=== PATIENT | male | born 1970 | race Caucasian/White ===

== ENCOUNTER 2018-12-27 13:39 | Inpatient (IN) | payer BC, OTHER ==
[~2018-12-27] VITALS: Ht 177.8 cm; Wt 119.7 kg
[2018-12-27 13:50] VITALS: BP_SYST 141
[2018-12-27] MEDS ORDERED: NACL 0.9% 1,000 ML IV ONE (14:14)
[2018-12-27] MEDS ORDERED: MORPHINE 2 MG/ML INJ. SYRINGE IVP ONE (14:15)
[2018-12-27] MEDS ORDERED: IOHEXOL 100 ML IV ONE (15:39)
[2018-12-27 15:41] LABS: CALCIUM 8.9 mg/dL (8.4-11.0); CREATININE 0.93 mg/dL (0.55-1.30)
[2018-12-27 15:45] LABS: TOTAL BILIRUBIN 0.9 mg/dL (0.0-1.0)
[2018-12-27 15:51] LABS: BILIRUBIN,URINE 1+ (NEGATIVE); BLOOD, URINE NEGATIVE (NEGATIVE); CLARITY/URINE CLEAR (CLEAR); COLOR,URINE YELLOW (YELLOW); GLUCOSE,URINE 2+ (NEGATIVE); KETONES,URINE NEGATIVE (NEGATIVE); LEUKOCYTE ESTERASE ,URINE NEGATIVE (NEGATIVE); NITRITE, URINE NEGATIVE (NEGATIVE); PH,URINE 7.5 (5.0-8.0); PROTEIN URINE 2+ (NEGATIVE)
[2018-12-27 15:56] LABS: BACTERIA,URINE RARE /HPF (None Seen); RBC,URINE 0-3 /HPF (0-3); WBC,URINE 0-3 /HPF (0-3)
[2018-12-27 15:59] LABS: INR 0.9 (0.80-1.20); PROTHROMBIN TIME 9.3 SECS (9.5-12.5)
[2018-12-27 16:04] LABS: BASOPHILS # (AUTO) 0.1 K/uL (0.0-0.2); BASOPHILS % (AUTO) 0.6 % (0.0-2.0); EOSINOPHILS # (AUTO) 0.1 K/uL (0.0-0.4); EOSINOPHILS % (AUTO) 1.2 % (0.0-4.0); HEMATOCRIT 38.2 % (36-54); LYMPHOCYTES # (AUTO) 1.1 K/uL (1.0-5.5); LYMPHOCYTES % (AUTO) 11.5 % (20.5-51.5); MEAN CORPUSCULAR HEMOGLOBIN 30 pg (27-31); MEAN CORPUSCULAR HGB CONC 35 % (32-36); MEAN CORPUSCULAR VOLUME 85 fL (79.0-98.0); MONOCYTES # (AUTO) 0.6 K/uL (0.0-1.0); NEUTROPHILS % (AUTO) 80.7 % (40.0-70.0); PLATELET COUNT (AUTO) 204 K/uL (130-430); RED BLOOD CELL COUNT(AUTO) 4.47 MIL/uL (4.2-6.2); RED CELL DISTRIBUTION WIDTH 12.9 % (9.0-15.0); WHITE BLOOD COUNT (AUTO) 9.9 K/uL (4.8-10.8)
[2018-12-27 16:06] LABS: HEMOGLOBIN 13.2 g/dL (14.0-18.0)
[2018-12-27] MEDS ORDERED: KETOROLAC TROMETHAMINE 30 MG VIAL IVP ONE (17:00)
[2018-12-27] MEDS ORDERED: INSULIN REGULAR, HUMAN 10 UNITS/0.1 ML INJ IVP ONE (17:00)
[2018-12-27] MEDS ORDERED: METO1TAB10 PO (17:50)
[2018-12-27] MEDS ORDERED: SIMV40TA2 PO (17:50)
[2018-12-27] MEDS ORDERED: VALS160T2 PO (17:50)
[2018-12-27] MEDS ORDERED: OXYC10TA56 PO (17:50)
[2018-12-27] MEDS ORDERED: PREG75CA PO (17:50)
[2018-12-27] MEDS ORDERED: FENO160 PO (17:50)
[2018-12-27] MEDS ORDERED: TEST75GE TD (17:50)
[2018-12-27] MEDS ORDERED: AMLO5TAB4 PO (17:50)
[2018-12-27] MEDS ORDERED: HYDR12.55 (17:50)
[2018-12-27] MEDS ORDERED: SERT-131 PO (17:50)
[2018-12-27] MEDS ORDERED: NACL 0.9% 1,000 ML IV SCH (18:00)
[2018-12-27 18:37] VITALS: BP_SYST 128
[2018-12-27 20:00] VITALS: BP_SYST 136
[2018-12-27] MEDS ORDERED: traZODone HCL 50 MG TABLET (DESYREL) PO PRN (22:30)
[2018-12-27] MEDS ORDERED: ONDANSETRON HCL 4 MG/2 ML VIAL IVP PRN (22:30)
[2018-12-27] MEDS ORDERED: ONDANSETRON HCL 4 MG/2 ML VIAL IM PRN (22:30)
[2018-12-27] MEDS ORDERED: MORPHINE 2 MG/ML INJ. SYRINGE IVP PRN (22:30)
[2018-12-27] MEDS: MORPHINE 4 MG/ML INJ. SYRINGE IVP PRN (22:46)
[2018-12-27] MEDS: NACL 0.9% 1,000 ML IV SCH (22:49)
[2018-12-27] MEDS ORDERED: D5W 1,000 ML IV PRN (23:00)
[2018-12-27] MEDS ORDERED: GLUCOSE 15 GM GEL (in 37.5 GM TUBE) PO PRN (23:00)
[2018-12-27] MEDS ORDERED: DEXTROSE 50%-WATER 50 ML DISP.SYRIN IVP PRN (23:00)
[2018-12-27] MEDS: INSULIN REGULAR, HUMAN 100 UNITS/ML, 10 ML VIAL (humuLIN R) SUBCUT PRN (23:06)
[2018-12-28 00:46] VITALS: BP_SYST 99
[2018-12-28] MEDS: INSULIN REGULAR, HUMAN 100 UNITS/ML, 10 ML VIAL (humuLIN R) SUBCUT PRN ×4 (05:22→20:21)
[2018-12-28] MEDS: NACL 0.9% 1,000 ML IV SCH ×2 (05:23→15:00)
[2018-12-28] MEDS: LORazepam 2 MG/ML VIAL IVP PRN (05:39)
[2018-12-28] MEDS: MORPHINE 4 MG/ML INJ. SYRINGE IVP PRN ×3 (05:39→20:14)
[2018-12-28 07:01] LABS: BASOPHILS # (AUTO) 0.1 K/uL (0.0-0.2); BASOPHILS % (AUTO) 0.7 % (0.0-2.0); EOSINOPHILS # (AUTO) 0.1 K/uL (0.0-0.4); EOSINOPHILS % (AUTO) 1.1 % (0.0-4.0); HEMATOCRIT 34.5 % (36-54); HEMOGLOBIN 12.2 g/dL (14.0-18.0); LYMPHOCYTES # (AUTO) 1.1 K/uL (1.0-5.5); LYMPHOCYTES % (AUTO) 12.9 % (20.5-51.5); MEAN CORPUSCULAR HEMOGLOBIN 30 pg (27-31); MEAN CORPUSCULAR HGB CONC 35 % (32-36); MEAN CORPUSCULAR VOLUME 84 fL (79.0-98.0); MONOCYTES # (AUTO) 0.7 K/uL (0.0-1.0); MONOCYTES % (AUTO) 8.3 % (1.7-9.3); NEUTROPHILS # (AUTO) 6.7 K/uL (1.8-7.7); PLATELET COUNT (AUTO) 133 K/uL (130-430); RED BLOOD CELL COUNT(AUTO) 4.09 MIL/uL (4.2-6.2); RED CELL DISTRIBUTION WIDTH 13.2 % (9.0-15.0); WHITE BLOOD COUNT (AUTO) 8.7 K/uL (4.8-10.8)
[2018-12-28 07:15] LABS: ALBUMIN 3.3 g/dL (3.4-4.8); CALCIUM 8.3 mg/dL (8.4-11.0); CREATININE 0.93 mg/dL (0.55-1.30); POTASSIUM 3.4 mmol/L (3.5-5.1); TOTAL BILIRUBIN 0.8 mg/dL (0.0-1.0)
[2018-12-28 08:00] VITALS: BP_SYST 121
[2018-12-28 11:31] VITALS: BP_SYST 115
[2018-12-28 14:30] VITALS: BP_SYST 134
[2018-12-28] MEDS ORDERED: DIPHENHYDRAMINE INJ 50 MG/ML VIAL IVP PRN (14:30)
[2018-12-28 16:30] VITALS: BP_SYST 122
[2018-12-28 20:00] VITALS: BP_SYST 120
[2018-12-28] MEDS: PREGABALIN 75 MG CAPSULE (LYRICA) PO SCH (20:04)
[2018-12-28] MEDS: oxyCODONE HCL 10 MG TAB.ER.12H PO SCH (20:04)
[2018-12-28] MEDS: ACETAMINOPHEN 325 MG TABLET PO PRN (20:13)
[2018-12-29] MEDS: MORPHINE 4 MG/ML INJ. SYRINGE IVP PRN ×6 (00:23→21:59)
[2018-12-29 00:54] VITALS: BP_SYST 133
[2018-12-29] MEDS: NACL 0.9% 1,000 ML IV SCH ×3 (02:49→21:58)
[2018-12-29] MEDS: INSULIN REGULAR, HUMAN 100 UNITS/ML, 10 ML VIAL (humuLIN R) SUBCUT PRN ×4 (05:40→20:49)
[2018-12-29 07:08] LABS: BASOPHILS % (AUTO) 0.5 % (0.0-2.0); EOSINOPHILS # (AUTO) 0.1 K/uL (0.0-0.4); EOSINOPHILS % (AUTO) 1.5 % (0.0-4.0); HEMATOCRIT 33.4 % (36-54); HEMOGLOBIN 11.5 g/dL (14.0-18.0); LYMPHOCYTES # (AUTO) 0.8 K/uL (1.0-5.5); LYMPHOCYTES % (AUTO) 11.9 % (20.5-51.5); MEAN CORPUSCULAR HEMOGLOBIN 29 pg (27-31); MEAN CORPUSCULAR HGB CONC 35 % (32-36); MEAN CORPUSCULAR VOLUME 84 fL (79.0-98.0); MONOCYTES # (AUTO) 0.6 K/uL (0.0-1.0); MONOCYTES % (AUTO) 9.2 % (1.7-9.3); NEUTROPHILS # (AUTO) 5.1 K/uL (1.8-7.7); NEUTROPHILS % (AUTO) 76.9 % (40.0-70.0); PLATELET COUNT (AUTO) 110 K/uL (130-430); RED BLOOD CELL COUNT(AUTO) 3.96 MIL/uL (4.2-6.2); RED CELL DISTRIBUTION WIDTH 12.8 % (9.0-15.0); WHITE BLOOD COUNT (AUTO) 6.7 K/uL (4.8-10.8)
[2018-12-29 07:18] LABS: CALCIUM 8.5 mg/dL (8.4-11.0); POTASSIUM 3.9 mmol/L (3.5-5.1)
[2018-12-29 08:08] VITALS: BP_SYST 134
[2018-12-29] MEDS: amLODIPine BESYLATE 5 MG TABLET PO SCH (08:44)
[2018-12-29] MEDS: SIMVASTATIN 40 MG TABLET PO SCH (08:45)
[2018-12-29] MEDS: METOPROLOL SUCCINATE 50 MG TAB.SR.24H (TOPROL XL) PO SCH (08:45)
[2018-12-29] MEDS: PREGABALIN 75 MG CAPSULE (LYRICA) PO SCH ×2 (08:45→20:20)
[2018-12-29] MEDS: SERTRALINE HCL 50 MG TABLET PO SCH (08:45)
[2018-12-29] MEDS: FENOFIBRATE 160 MG TABLET PO SCH (08:46)
[2018-12-29] MEDS: VALSARTAN 160 MG TABLET (DIOVAN) PO SCH (08:47)
[2018-12-29] MEDS: HYDROCHLOROTHIAZIDE 12.5 MG CAPSULE (HCTZ) PO SCH (08:47)
[2018-12-29] MEDS: oxyCODONE HCL 10 MG TAB.ER.12H PO SCH ×2 (08:48→20:20)
[2018-12-29] MEDS ORDERED: HYDROCHLOROTHIAZIDE 25 MG TABLET (HCTZ) PO SCH (09:00)
[2018-12-29] MEDS ORDERED: TESTOSTERONE 75 GM TD SCH (09:00)
[2018-12-29] MEDS ORDERED: HYDROCHLOROTHIAZIDE 10 MG SCH (09:00)
[2018-12-29 11:31] VITALS: BP_SYST 144
[2018-12-29 12:01] VITALS: BP_SYST 132
[2018-12-29 15:27] VITALS: BP_SYST 135
[2018-12-29] MEDS: ACETAMINOPHEN 325 MG TABLET PO PRN (17:30)
[2018-12-29 20:00] VITALS: BP_SYST 136
[2018-12-29] MEDS ORDERED: INSULIN GLARGINE 100 UNITS/ML 10 ML VIAL SUBCUT SCH (21:45)
[2018-12-30 01:26] VITALS: BP_SYST 134
[2018-12-30] MEDS: MORPHINE 4 MG/ML INJ. SYRINGE IVP PRN ×4 (02:09→15:10)
[2018-12-30] MEDS: INSULIN REGULAR, HUMAN 100 UNITS/ML, 10 ML VIAL (humuLIN R) SUBCUT PRN (06:31)
[2018-12-30 06:53] LABS: BASOPHILS % (AUTO) 0.5 % (0.0-2.0); EOSINOPHILS # (AUTO) 0.1 K/uL (0.0-0.4); EOSINOPHILS % (AUTO) 2.4 % (0.0-4.0); HEMATOCRIT 33.8 % (36-54); HEMOGLOBIN 11.7 g/dL (14.0-18.0); LYMPHOCYTES # (AUTO) 0.9 K/uL (1.0-5.5); LYMPHOCYTES % (AUTO) 15.9 % (20.5-51.5); MEAN CORPUSCULAR HEMOGLOBIN 29 pg (27-31); MEAN CORPUSCULAR HGB CONC 35 % (32-36); MEAN CORPUSCULAR VOLUME 84 fL (79.0-98.0); MONOCYTES # (AUTO) 0.5 K/uL (0.0-1.0); MONOCYTES % (AUTO) 8.9 % (1.7-9.3); NEUTROPHILS # (AUTO) 4.1 K/uL (1.8-7.7); NEUTROPHILS % (AUTO) 72.3 % (40.0-70.0); PLATELET COUNT (AUTO) 121 K/uL (130-430); RED BLOOD CELL COUNT(AUTO) 4.04 MIL/uL (4.2-6.2); RED CELL DISTRIBUTION WIDTH 12.6 % (9.0-15.0); WHITE BLOOD COUNT (AUTO) 5.7 K/uL (4.8-10.8)
[2018-12-30 07:21] LABS: CREATININE 0.67 mg/dL (0.55-1.30); POTASSIUM 3.3 mmol/L (3.5-5.1); THYROID STIMULATING HORMONE 1.61 uIu/mL (0.34-4.82); TOTAL BILIRUBIN 1.1 mg/dL (0.0-1.0)
[2018-12-30 08:31] VITALS: BP_SYST 128
[2018-12-30] MEDS: amLODIPine BESYLATE 5 MG TABLET PO SCH (08:37)
[2018-12-30] MEDS: HYDROCHLOROTHIAZIDE 12.5 MG CAPSULE (HCTZ) PO SCH (08:37)
[2018-12-30] MEDS: FENOFIBRATE 160 MG TABLET PO SCH (08:37)
[2018-12-30] MEDS: VALSARTAN 160 MG TABLET (DIOVAN) PO SCH (08:37)
[2018-12-30] MEDS: PREGABALIN 75 MG CAPSULE (LYRICA) PO SCH ×2 (08:37→20:33)
[2018-12-30] MEDS: oxyCODONE HCL 10 MG TAB.ER.12H PO SCH ×2 (08:38→20:34)
[2018-12-30] MEDS: SERTRALINE HCL 50 MG TABLET PO SCH (08:38)
[2018-12-30] MEDS: METOPROLOL SUCCINATE 50 MG TAB.SR.24H (TOPROL XL) PO SCH (08:38)
[2018-12-30] MEDS: SIMVASTATIN 40 MG TABLET PO SCH (08:38)
[2018-12-30] MEDS: NACL 0.9% 1,000 ML IV SCH (08:42)
[2018-12-30 10:32] VITALS: BP_SYST 128
[2018-12-30] MEDS: KCL 20 mEq in 0.45% NS 1000 mL 1,000 ML IV SCH ×2 (11:04→23:04)
[2018-12-30 12:53] VITALS: BP_SYST 129
[2018-12-30 16:52] VITALS: BP_SYST 148
[2018-12-30 20:40] VITALS: BP_SYST 135
[2018-12-30] MEDS: INSULIN GLARGINE 100 UNITS/ML 10 ML VIAL SUBCUT SCH (21:00)
[2018-12-30] MEDS: HYDROmorphone 1 MG INJ. 1 MG/ML AMPUL IVP PRN (21:16)
[2018-12-31 00:21] VITALS: BP_SYST 142
[2018-12-31] MEDS: HYDROmorphone 1 MG INJ. 1 MG/ML AMPUL IVP PRN ×5 (01:06→19:41)
[2018-12-31 06:23] LABS: BASOPHILS % (AUTO) 0.5 % (0.0-2.0); EOSINOPHILS # (AUTO) 0.2 K/uL (0.0-0.4); EOSINOPHILS % (AUTO) 2.7 % (0.0-4.0); HEMATOCRIT 34.3 % (36-54); HEMOGLOBIN 11.6 g/dL (14.0-18.0); LYMPHOCYTES % (AUTO) 16.1 % (20.5-51.5); MEAN CORPUSCULAR HEMOGLOBIN 29 pg (27-31); MEAN CORPUSCULAR HGB CONC 34 % (32-36); MEAN CORPUSCULAR VOLUME 85 fL (79.0-98.0); MONOCYTES # (AUTO) 0.7 K/uL (0.0-1.0); MONOCYTES % (AUTO) 11.6 % (1.7-9.3); NEUTROPHILS # (AUTO) 4.4 K/uL (1.8-7.7); NEUTROPHILS % (AUTO) 69.1 % (40.0-70.0); PLATELET COUNT (AUTO) 144 K/uL (130-430); RED BLOOD CELL COUNT(AUTO) 4.05 MIL/uL (4.2-6.2); RED CELL DISTRIBUTION WIDTH 12.8 % (9.0-15.0); WHITE BLOOD COUNT (AUTO) 6.3 K/uL (4.8-10.8)
[2018-12-31 06:33] LABS: CREATININE 0.82 mg/dL (0.55-1.30); POTASSIUM 3.6 mmol/L (3.5-5.1)
[2018-12-31] MEDS ORDERED: MIDAZOLAM HCL 5 MG/5 ML VIAL ONE (07:06)
[2018-12-31] MEDS ORDERED: BENZOCAINE 20% 0.5mL UD SPRAY MM ONE (07:07)
[2018-12-31] MEDS: fentaNYL CITRATE/PF 100 MCG/2 ML AMP ONE ×3 (07:49→07:55)
[2018-12-31] MEDS: MIDAZOLAM HCL 5 MG/5 ML VIAL ONE ×4 (07:49→07:58)
[2018-12-31] MEDS: KCL 20 mEq in 0.45% NS 1000 mL 1,000 ML IV SCH ×2 (08:51→12:03)
[2018-12-31 09:00] VITALS: BP_SYST 145
[2018-12-31] MEDS: PANTOPRAZOLE SODIUM 40 MG/VIAL (PROTONIX) IVP SCH ×2 (09:10→20:51)
[2018-12-31] MEDS: SIMVASTATIN 40 MG TABLET PO SCH (09:11)
[2018-12-31] MEDS: SERTRALINE HCL 50 MG TABLET PO SCH (09:11)
[2018-12-31] MEDS: METOPROLOL SUCCINATE 50 MG TAB.SR.24H (TOPROL XL) PO SCH (09:11)
[2018-12-31] MEDS: PREGABALIN 75 MG CAPSULE (LYRICA) PO SCH ×2 (09:11→20:52)
[2018-12-31] MEDS: amLODIPine BESYLATE 5 MG TABLET PO SCH (09:12)
[2018-12-31] MEDS: FENOFIBRATE 160 MG TABLET PO SCH (09:12)
[2018-12-31] MEDS: oxyCODONE HCL 10 MG TAB.ER.12H PO SCH ×2 (09:12→20:52)
[2018-12-31] MEDS: HYDROCHLOROTHIAZIDE 12.5 MG CAPSULE (HCTZ) PO SCH (09:12)
[2018-12-31] MEDS: VALSARTAN 160 MG TABLET (DIOVAN) PO SCH (09:13)
[2018-12-31] MEDS: INSULIN REGULAR, HUMAN 100 UNITS/ML, 10 ML VIAL (humuLIN R) SUBCUT PRN ×2 (12:03→17:32)
[2018-12-31 12:24] VITALS: BP_SYST 148
[2018-12-31 16:08] VITALS: BP_SYST 130
[2018-12-31 19:38] VITALS: BP_SYST 123
[2018-12-31] MEDS: INSULIN GLARGINE 100 UNITS/ML 10 ML VIAL SUBCUT SCH (21:04)
[2018-12-31] MEDS: LR 1,000 ML IV SCH (21:08)
[2019-01-01] MEDS: INSULIN REGULAR, HUMAN 100 UNITS/ML, 10 ML VIAL (humuLIN R) SUBCUT PRN ×3 (00:24→12:09)
[2019-01-01 00:25] VITALS: BP_SYST 119
[2019-01-01] MEDS: LR 1,000 ML IV SCH ×5 (02:10→22:38)
[2019-01-01] MEDS: HYDROmorphone 1 MG INJ. 1 MG/ML AMPUL IVP PRN ×4 (05:42→22:38)
[2019-01-01 05:44] LABS: BASOPHILS % (AUTO) 0.4 % (0.0-2.0); EOSINOPHILS # (AUTO) 0.2 K/uL (0.0-0.4); EOSINOPHILS % (AUTO) 2.4 % (0.0-4.0); HEMATOCRIT 32.1 % (36-54); HEMOGLOBIN 11.1 g/dL (14.0-18.0); LYMPHOCYTES # (AUTO) 0.9 K/uL (1.0-5.5); LYMPHOCYTES % (AUTO) 12.5 % (20.5-51.5); MEAN CORPUSCULAR HEMOGLOBIN 29 pg (27-31); MEAN CORPUSCULAR HGB CONC 35 % (32-36); MEAN CORPUSCULAR VOLUME 83 fL (79.0-98.0); MONOCYTES # (AUTO) 0.8 K/uL (0.0-1.0); MONOCYTES % (AUTO) 10.9 % (1.7-9.3); NEUTROPHILS # (AUTO) 5.3 K/uL (1.8-7.7); NEUTROPHILS % (AUTO) 73.8 % (40.0-70.0); PLATELET COUNT (AUTO) 156 K/uL (130-430); RED BLOOD CELL COUNT(AUTO) 3.85 MIL/uL (4.2-6.2); WHITE BLOOD COUNT (AUTO) 7.2 K/uL (4.8-10.8)
[2019-01-01 06:55] LABS: ALBUMIN 2.9 g/dL (3.4-4.8); CALCIUM 9.1 mg/dL (8.4-11.0); CREATININE 0.86 mg/dL (0.55-1.30); POTASSIUM 3.1 mmol/L (3.5-5.1); TOTAL BILIRUBIN 0.6 mg/dL (0.0-1.0)
[2019-01-01 08:00] VITALS: BP_SYST 155
[2019-01-01] MEDS ORDERED: POTASSIUM CHLORIDE 20 MEQ TAB.PRT.SR PO ONE (08:45)
[2019-01-01] MEDS: SERTRALINE HCL 50 MG TABLET PO SCH (09:21)
[2019-01-01] MEDS: PANTOPRAZOLE SODIUM 40 MG/VIAL (PROTONIX) IVP SCH ×2 (09:21→20:04)
[2019-01-01] MEDS: oxyCODONE HCL 10 MG TAB.ER.12H PO SCH ×2 (09:21→20:04)
[2019-01-01] MEDS: METOPROLOL SUCCINATE 50 MG TAB.SR.24H (TOPROL XL) PO SCH (09:22)
[2019-01-01] MEDS: amLODIPine BESYLATE 5 MG TABLET PO SCH (09:22)
[2019-01-01] MEDS: VALSARTAN 160 MG TABLET (DIOVAN) PO SCH (09:23)
[2019-01-01] MEDS: PREGABALIN 75 MG CAPSULE (LYRICA) PO SCH ×2 (09:23→20:04)
[2019-01-01] MEDS: SIMVASTATIN 40 MG TABLET PO SCH (09:23)
[2019-01-01] MEDS: HYDROCHLOROTHIAZIDE 12.5 MG CAPSULE (HCTZ) PO SCH (09:23)
[2019-01-01 11:37] VITALS: BP_SYST 143
[2019-01-01] MEDS ORDERED: DEXTROSE 50% JECT 50 ML DISP.SYRIN IVP PRN (12:30)
[2019-01-01] MEDS ORDERED: INSULIN NPH 100 UNITS/ML 10 ML VIAL SUBCUT ONE (12:30)
[2019-01-01] MEDS ORDERED: FENOFIBRATE 160 MG TABLET PO ONE (13:00)
[2019-01-01] MEDS ORDERED: INSULIN Lispro 100 UNITS/ML VIAL (humaLOG) SUBCUT ONE (13:00)
[2019-01-01 15:54] VITALS: BP_SYST 138
[2019-01-01] MEDS: INSULIN Lispro 100 UNITS/ML VIAL (humaLOG) SUBCUT SCH (17:14)
[2019-01-01] MEDS: INSULIN LISPRO SLIDING SCALE 100 UNITS/ML VIAL (humaLOG) SUBCUT PRN ×2 (17:16→20:12)
[2019-01-01 20:00] VITALS: BP_SYST 151
[2019-01-01] MEDS ORDERED: INSULIN GLARGINE 100 UNITS/ML 10 ML VIAL SUBCUT SCH (21:00)
[2019-01-01 23:57] VITALS: BP_SYST 134
[2019-01-02] MEDS: LR 1,000 ML IV SCH ×4 (03:07→20:04)
[2019-01-02] MEDS: HYDROmorphone 1 MG INJ. 1 MG/ML AMPUL IVP PRN ×4 (04:07→19:57)
[2019-01-02 06:24] LABS: BASOPHILS % (AUTO) 0.5 % (0.0-2.0); EOSINOPHILS # (AUTO) 0.2 K/uL (0.0-0.4); EOSINOPHILS % (AUTO) 2.6 % (0.0-4.0); HEMOGLOBIN 11.1 g/dL (14.0-18.0); LYMPHOCYTES # (AUTO) 0.9 K/uL (1.0-5.5); LYMPHOCYTES % (AUTO) 14.7 % (20.5-51.5); MEAN CORPUSCULAR HEMOGLOBIN 29 pg (27-31); MEAN CORPUSCULAR HGB CONC 35 % (32-36); MEAN CORPUSCULAR VOLUME 84 fL (79.0-98.0); MONOCYTES # (AUTO) 0.6 K/uL (0.0-1.0); MONOCYTES % (AUTO) 10.1 % (1.7-9.3); NEUTROPHILS # (AUTO) 4.2 K/uL (1.8-7.7); NEUTROPHILS % (AUTO) 72.1 % (40.0-70.0); PLATELET COUNT (AUTO) 160 K/uL (130-430); RED BLOOD CELL COUNT(AUTO) 3.83 MIL/uL (4.2-6.2); RED CELL DISTRIBUTION WIDTH 12.8 % (9.0-15.0); WHITE BLOOD COUNT (AUTO) 5.9 K/uL (4.8-10.8)
[2019-01-02] MEDS: INSULIN Lispro 100 UNITS/ML VIAL (humaLOG) SUBCUT SCH ×3 (06:32→17:26)
[2019-01-02] MEDS: INSULIN LISPRO SLIDING SCALE 100 UNITS/ML VIAL (humaLOG) SUBCUT PRN ×4 (06:33→21:26)
[2019-01-02] MEDS: LORazepam 2 MG/ML VIAL IVP PRN ×3 (06:39→21:52)
[2019-01-02 06:59] LABS: CALCIUM 9.3 mg/dL (8.4-11.0); CREATININE 0.9 mg/dL (0.55-1.30); POTASSIUM 3.6 mmol/L (3.5-5.1)
[2019-01-02 08:00] VITALS: BP_SYST 156
[2019-01-02] MEDS: oxyCODONE HCL 10 MG TAB.ER.12H PO SCH ×2 (08:02→21:17)
[2019-01-02] MEDS: PANTOPRAZOLE SODIUM 40 MG/VIAL (PROTONIX) IVP SCH ×2 (08:02→21:17)
[2019-01-02] MEDS: PREGABALIN 75 MG CAPSULE (LYRICA) PO SCH ×2 (08:02→21:17)
[2019-01-02] MEDS: SERTRALINE HCL 50 MG TABLET PO SCH (08:02)
[2019-01-02] MEDS: VALSARTAN 160 MG TABLET (DIOVAN) PO SCH (08:03)
[2019-01-02] MEDS: FENOFIBRATE 160 MG TABLET PO SCH (08:03)
[2019-01-02] MEDS: HYDROCHLOROTHIAZIDE 12.5 MG CAPSULE (HCTZ) PO SCH (08:03)
[2019-01-02] MEDS: SIMVASTATIN 40 MG TABLET PO SCH (08:03)
[2019-01-02] MEDS: amLODIPine BESYLATE 5 MG TABLET PO SCH (08:04)
[2019-01-02] MEDS: METOPROLOL SUCCINATE 50 MG TAB.SR.24H (TOPROL XL) PO SCH (08:04)
[2019-01-02] MEDS ORDERED: DIATR MEGLU/DIATRIZ SOD 30 ML SOLUTION PO ONE (10:16)
[2019-01-02] MEDS ORDERED: IOHEXOL 100 ML IV ONE (11:49)
[2019-01-02 12:00] VITALS: BP_SYST 153
[2019-01-02 16:00] VITALS: BP_SYST 129
[2019-01-02 19:53] VITALS: BP_SYST 154
[2019-01-02] MEDS: INSULIN GLARGINE 100 UNITS/ML 10 ML VIAL SUBCUT SCH (21:23)
[2019-01-03] MEDS: LR 1,000 ML IV SCH ×5 (00:07→20:22)
[2019-01-03] MEDS: HYDROmorphone 1 MG INJ. 1 MG/ML AMPUL IVP PRN ×5 (00:08→20:23)
[2019-01-03 00:43] VITALS: BP_SYST 136
[2019-01-03 07:00] LABS: BASOPHILS % (AUTO) 0.4 % (0.0-2.0); EOSINOPHILS # (AUTO) 0.1 K/uL (0.0-0.4); EOSINOPHILS % (AUTO) 2.6 % (0.0-4.0); HEMOGLOBIN 10.7 g/dL (14.0-18.0); LYMPHOCYTES # (AUTO) 0.8 K/uL (1.0-5.5); LYMPHOCYTES % (AUTO) 15.2 % (20.5-51.5); MEAN CORPUSCULAR HEMOGLOBIN 29 pg (27-31); MEAN CORPUSCULAR HGB CONC 34 % (32-36); MEAN CORPUSCULAR VOLUME 83 fL (79.0-98.0); MONOCYTES # (AUTO) 0.6 K/uL (0.0-1.0); MONOCYTES % (AUTO) 10.8 % (1.7-9.3); NEUTROPHILS # (AUTO) 3.8 K/uL (1.8-7.7); PLATELET COUNT (AUTO) 175 K/uL (130-430); RED BLOOD CELL COUNT(AUTO) 3.74 MIL/uL (4.2-6.2); RED CELL DISTRIBUTION WIDTH 12.9 % (9.0-15.0); WHITE BLOOD COUNT (AUTO) 5.4 K/uL (4.8-10.8)
[2019-01-03 07:14] LABS: ALBUMIN 2.8 g/dL (3.4-4.8); CALCIUM 9.1 mg/dL (8.4-11.0); CREATININE 0.75 mg/dL (0.55-1.30); POTASSIUM 3.5 mmol/L (3.5-5.1); TOTAL BILIRUBIN 0.5 mg/dL (0.0-1.0)
[2019-01-03] MEDS: INSULIN Lispro 100 UNITS/ML VIAL (humaLOG) SUBCUT SCH ×2 (07:21→12:02)
[2019-01-03] MEDS: INSULIN LISPRO SLIDING SCALE 100 UNITS/ML VIAL (humaLOG) SUBCUT PRN ×3 (07:22→17:36)
[2019-01-03 08:00] VITALS: BP_SYST 139
[2019-01-03] MEDS: PANTOPRAZOLE SODIUM 40 MG/VIAL (PROTONIX) IVP SCH ×2 (08:21→21:02)
[2019-01-03] MEDS: FENOFIBRATE 160 MG TABLET PO SCH (08:22)
[2019-01-03] MEDS: SERTRALINE HCL 50 MG TABLET PO SCH (08:22)
[2019-01-03] MEDS: PREGABALIN 75 MG CAPSULE (LYRICA) PO SCH ×2 (08:22→21:02)
[2019-01-03] MEDS: SIMVASTATIN 40 MG TABLET PO SCH (08:22)
[2019-01-03] MEDS: HYDROCHLOROTHIAZIDE 12.5 MG CAPSULE (HCTZ) PO SCH (08:23)
[2019-01-03] MEDS: VALSARTAN 160 MG TABLET (DIOVAN) PO SCH (08:23)
[2019-01-03] MEDS: amLODIPine BESYLATE 5 MG TABLET PO SCH (08:24)
[2019-01-03] MEDS: METOPROLOL SUCCINATE 50 MG TAB.SR.24H (TOPROL XL) PO SCH (08:24)
[2019-01-03] MEDS: oxyCODONE HCL 10 MG TAB.ER.12H PO SCH ×2 (08:25→21:17)
[2019-01-03 12:43] VITALS: BP_SYST 125
[2019-01-03 16:39] VITALS: BP_SYST 146
[2019-01-03 20:00] VITALS: BP_SYST 129
[2019-01-03] MEDS: INSULIN GLARGINE 100 UNITS/ML 10 ML VIAL SUBCUT SCH (21:16)
[2019-01-03] MEDS: LORazepam 2 MG/ML VIAL IVP PRN (22:34)
[2019-01-04] MEDS: LR 1,000 ML IV SCH ×5 (02:31→21:44)
[2019-01-04 05:12] VITALS: BP_SYST 126
[2019-01-04] MEDS: HYDROmorphone 1 MG INJ. 1 MG/ML AMPUL IVP PRN ×5 (06:04→21:37)
[2019-01-04] MEDS: INSULIN Lispro 100 UNITS/ML VIAL (humaLOG) SUBCUT SCH ×3 (06:19→17:41)
[2019-01-04] MEDS ORDERED: INSULIN Lispro 100 UNITS/ML VIAL (humaLOG) SUBCUT SCH (07:00)
[2019-01-04 07:21] LABS: BASOPHILS % (AUTO) 0.5 % (0.0-2.0); EOSINOPHILS # (AUTO) 0.2 K/uL (0.0-0.4); EOSINOPHILS % (AUTO) 3.2 % (0.0-4.0); HEMATOCRIT 33.5 % (36-54); HEMOGLOBIN 11.5 g/dL (14.0-18.0); LYMPHOCYTES % (AUTO) 17.4 % (20.5-51.5); MEAN CORPUSCULAR HEMOGLOBIN 29 pg (27-31); MEAN CORPUSCULAR HGB CONC 35 % (32-36); MEAN CORPUSCULAR VOLUME 84 fL (79.0-98.0); MONOCYTES # (AUTO) 0.6 K/uL (0.0-1.0); MONOCYTES % (AUTO) 9.8 % (1.7-9.3); NEUTROPHILS # (AUTO) 4.2 K/uL (1.8-7.7); NEUTROPHILS % (AUTO) 69.1 % (40.0-70.0); PLATELET COUNT (AUTO) 220 K/uL (130-430); RED CELL DISTRIBUTION WIDTH 12.6 % (9.0-15.0)
[2019-01-04 07:38] LABS: CALCIUM 9.5 mg/dL (8.4-11.0); CREATININE 0.94 mg/dL (0.55-1.30); POTASSIUM 3.9 mmol/L (3.5-5.1)
[2019-01-04 08:40] VITALS: BP_SYST 149
[2019-01-04] MEDS: PREGABALIN 75 MG CAPSULE (LYRICA) PO SCH ×2 (08:41→20:35)
[2019-01-04] MEDS: VALSARTAN 160 MG TABLET (DIOVAN) PO SCH (08:42)
[2019-01-04] MEDS: HYDROCHLOROTHIAZIDE 12.5 MG CAPSULE (HCTZ) PO SCH (08:42)
[2019-01-04] MEDS: SERTRALINE HCL 50 MG TABLET PO SCH (08:42)
[2019-01-04] MEDS: METOPROLOL SUCCINATE 50 MG TAB.SR.24H (TOPROL XL) PO SCH (08:43)
[2019-01-04] MEDS: SIMVASTATIN 40 MG TABLET PO SCH (08:43)
[2019-01-04] MEDS: oxyCODONE HCL 10 MG TAB.ER.12H PO SCH ×2 (08:44→20:35)
[2019-01-04] MEDS: amLODIPine BESYLATE 5 MG TABLET PO SCH (08:44)
[2019-01-04] MEDS: PANTOPRAZOLE SODIUM 40 MG/VIAL (PROTONIX) IVP SCH ×2 (08:45→20:36)
[2019-01-04] MEDS: FENOFIBRATE 160 MG TABLET PO SCH (09:03)
[2019-01-04] MEDS: INSULIN LISPRO SLIDING SCALE 100 UNITS/ML VIAL (humaLOG) SUBCUT PRN ×2 (12:05→17:42)
[2019-01-04 20:00] VITALS: BP_SYST 138
[2019-01-04] MEDS: INSULIN GLARGINE 100 UNITS/ML 10 ML VIAL SUBCUT SCH (20:35)
[2019-01-04] MEDS: LORazepam 2 MG/ML VIAL IVP PRN (21:36)
[2019-01-05 00:51] VITALS: BP_SYST 141
[2019-01-05] MEDS: LR 1,000 ML IV SCH ×5 (03:15→22:25)
[2019-01-05] MEDS: INSULIN Lispro 100 UNITS/ML VIAL (humaLOG) SUBCUT SCH ×3 (06:27→18:06)
[2019-01-05 07:04] LABS: BASOPHILS % (AUTO) 0.5 % (0.0-2.0); EOSINOPHILS # (AUTO) 0.2 K/uL (0.0-0.4); EOSINOPHILS % (AUTO) 3.1 % (0.0-4.0); HEMATOCRIT 31.5 % (36-54); LYMPHOCYTES % (AUTO) 17.4 % (20.5-51.5); MEAN CORPUSCULAR HEMOGLOBIN 29 pg (27-31); MEAN CORPUSCULAR HGB CONC 35 % (32-36); MEAN CORPUSCULAR VOLUME 82 fL (79.0-98.0); MONOCYTES # (AUTO) 0.5 K/uL (0.0-1.0); MONOCYTES % (AUTO) 9.3 % (1.7-9.3); NEUTROPHILS # (AUTO) 4.1 K/uL (1.8-7.7); NEUTROPHILS % (AUTO) 69.7 % (40.0-70.0); PLATELET COUNT (AUTO) 213 K/uL (130-430); RED BLOOD CELL COUNT(AUTO) 3.82 MIL/uL (4.2-6.2); RED CELL DISTRIBUTION WIDTH 12.9 % (9.0-15.0); WHITE BLOOD COUNT (AUTO) 5.9 K/uL (4.8-10.8)
[2019-01-05] MEDS: oxyCODONE HCL 10 MG TAB.ER.12H PO SCH ×2 (08:26→20:30)
[2019-01-05] MEDS: SERTRALINE HCL 50 MG TABLET PO SCH (08:26)
[2019-01-05] MEDS: HYDROCHLOROTHIAZIDE 12.5 MG CAPSULE (HCTZ) PO SCH (08:27)
[2019-01-05] MEDS: FENOFIBRATE 160 MG TABLET PO SCH (08:28)
[2019-01-05] MEDS: SIMVASTATIN 40 MG TABLET PO SCH (08:29)
[2019-01-05] MEDS: METOPROLOL SUCCINATE 50 MG TAB.SR.24H (TOPROL XL) PO SCH (08:29)
[2019-01-05] MEDS: VALSARTAN 160 MG TABLET (DIOVAN) PO SCH (08:29)
[2019-01-05] MEDS: PREGABALIN 75 MG CAPSULE (LYRICA) PO SCH ×2 (08:30→20:30)
[2019-01-05] MEDS: amLODIPine BESYLATE 5 MG TABLET PO SCH (08:30)
[2019-01-05] MEDS: PANTOPRAZOLE SODIUM 40 MG/VIAL (PROTONIX) IVP SCH ×2 (08:30→20:30)
[2019-01-05 08:34] LABS: CALCIUM 9.4 mg/dL (8.4-11.0); CREATININE 1.02 mg/dL (0.55-1.30); POTASSIUM 3.7 mmol/L (3.5-5.1)
[2019-01-05 10:10] VITALS: BP_SYST 142
[2019-01-05] MEDS: INSULIN LISPRO SLIDING SCALE 100 UNITS/ML VIAL (humaLOG) SUBCUT PRN (11:52)
[2019-01-05] MEDS: HYDROmorphone 1 MG INJ. 1 MG/ML AMPUL IVP PRN ×3 (11:52→20:08)
[2019-01-05 11:57] VITALS: BP_SYST 122
[2019-01-05 15:28] VITALS: BP_SYST 147
[2019-01-05 19:00] VITALS: BP_SYST 145
[2019-01-05 20:00] VITALS: BP_SYST 145
[2019-01-05] MEDS: INSULIN GLARGINE 100 UNITS/ML 10 ML VIAL SUBCUT SCH (20:44)
[2019-01-05] MEDS: LORazepam 2 MG/ML VIAL IVP PRN (22:27)
[2019-01-06] VITALS: BP_SYST 152
[2019-01-06] MEDS: LR 1,000 ML IV SCH ×3 (04:29→14:15)
[2019-01-06] MEDS: INSULIN Lispro 100 UNITS/ML VIAL (humaLOG) SUBCUT SCH ×2 (06:23→11:38)
[2019-01-06 08:08] VITALS: BP_SYST 140
[2019-01-06] MEDS: PANTOPRAZOLE SODIUM 40 MG/VIAL (PROTONIX) IVP SCH (09:03)
[2019-01-06] MEDS: PREGABALIN 75 MG CAPSULE (LYRICA) PO SCH (09:04)
[2019-01-06] MEDS: oxyCODONE HCL 10 MG TAB.ER.12H PO SCH (09:04)
[2019-01-06] MEDS: METOPROLOL SUCCINATE 50 MG TAB.SR.24H (TOPROL XL) PO SCH (09:04)
[2019-01-06] MEDS: SIMVASTATIN 40 MG TABLET PO SCH (09:05)
[2019-01-06] MEDS: SERTRALINE HCL 50 MG TABLET PO SCH (09:05)
[2019-01-06] MEDS: HYDROCHLOROTHIAZIDE 12.5 MG CAPSULE (HCTZ) PO SCH (09:05)
[2019-01-06] MEDS: FENOFIBRATE 160 MG TABLET PO SCH (09:06)
[2019-01-06] MEDS: amLODIPine BESYLATE 5 MG TABLET PO SCH (09:07)
[2019-01-06] MEDS: VALSARTAN 160 MG TABLET (DIOVAN) PO SCH (09:07)
[2019-01-06 11:31] VITALS: BP_SYST 127
[2019-01-06] MEDS: INSULIN LISPRO SLIDING SCALE 100 UNITS/ML VIAL (humaLOG) SUBCUT PRN (11:40)
[2019-01-06] MEDS ORDERED: INSU100V9 SUBCUT (13:12)
[2019-01-06] MEDS ORDERED: INSU100V SUBCUT (13:12)
[2019-01-06] MEDS ORDERED: PRO40 PO (13:12)
[2019-01-06 13:48] VITALS: BP_SYST 127
[2019-01-06 15:37] VITALS: BP_SYST 146
[2019-01-06] MEDS ORDERED: FENO160 PO (15:53)
== END 2019-01-06 16:15 | disposition home or self-care (01) | DRG 391 ==
LOC: SED 13:39 → SMU 17:47
PROVIDERS: ADMIT Preventive Medicine Preventive Medicine/Occupational Environmental Medicine; ATTEND Preventive Medicine Preventive Medicine/Occupational Environmental Medicine
PROC: 5A09357 Assistance with Respiratory Ventilation, Less than 24 Consecutive Hours, Continuous Positive Airway Pressure (ICD-10-PCS; 2018-12-27)
PROC: 5A09357 Assistance with Respiratory Ventilation, Less than 24 Consecutive Hours, Continuous Positive Airway Pressure (ICD-10-PCS; 2018-12-28)
PROC: 5A09357 Assistance with Respiratory Ventilation, Less than 24 Consecutive Hours, Continuous Positive Airway Pressure (ICD-10-PCS; 2018-12-29)
PROC: 5A09357 Assistance with Respiratory Ventilation, Less than 24 Consecutive Hours, Continuous Positive Airway Pressure (ICD-10-PCS; 2018-12-31)
PROC: 0DB78ZX Excision of Stomach, Pylorus, Via Natural or Artificial Opening Endoscopic, Diagnostic (ICD-10-PCS; principal; 2018-12-31 07:30)
PROC: 5A09357 Assistance with Respiratory Ventilation, Less than 24 Consecutive Hours, Continuous Positive Airway Pressure (ICD-10-PCS; 2019-01-05)
DX: K29.60 Other gastritis without bleeding (principal); K85.90 Acute pancreatitis without necrosis or infection, unspecified; E87.1 Hypo-osmolality and hyponatremia; E44.0 Moderate protein-calorie malnutrition; E11.65 Type 2 diabetes mellitus with hyperglycemia; K29.80 Duodenitis without bleeding; D64.9 Anemia, unspecified; I10 Essential (primary) hypertension; E11.9 Type 2 diabetes mellitus without complications; E87.8 Other disorders of electrolyte and fluid balance, not elsewhere classified; R74.0 Nonspecific elevation of levels of transaminase and lactic acid dehydrogenase [LDH]; E78.5 Hyperlipidemia, unspecified; E66.01 Morbid (severe) obesity due to excess calories; K29.70 Gastritis, unspecified, without bleeding; D69.6 Thrombocytopenia, unspecified; E78.1 Pure hyperglyceridemia; F17.210 Nicotine dependence, cigarettes, uncomplicated; Z79.4 Long term (current) use of insulin; Z83.3 Family history of diabetes mellitus; Z68.37 Body mass index [BMI] 37.0-37.9, adult
CPT/HCPCS: 36415; 43239; 74181; 80048; 80053; 81000-TC; 82150-TC; 82962; 83036; 83690-TC; 84443-TC; 84478-TC; 85025; 85610-TC; 87081; 88305; 88312; 88313; 94660; 99285; C9113; J1170; J1815; J1885; J2060; J2250; J2270; J2405; J3010; J3480; J7030; J7120; Q9964; Q9967